=== PATIENT | female | born 1955 | race Caucasian/White ===

== ENCOUNTER 2016-10-21 11:40 | Emergency (ER) | payer MEDICAID ==
[2016-10-21 11:47] VITALS: BP 123/85; PULSE 60; RESP 18; TEMP 97.7; O2SAT 96
== END 2016-10-21 12:10 | disposition left against medical advice (07) ==
DX: Z53.21 Procedure and treatment not carried out due to patient leaving prior to being seen by health care provider (principal)

== ENCOUNTER 2017-07-07 09:05 | Emergency (ER) | payer MEDICAID ==
[2017-07-07 09:10] VITALS: BP 141/89; PULSE 84; RESP 16; TEMP 97.7; O2SAT 98
--- NOTE | 2017-07-07 09:21 | EDPHY ---
H & P Time Seen by Provider: 07/07/17 09:11 HPI/ROS: CHIEF COMPLAINT: Left pinky finger laceration HISTORY OF PRESENT ILLNESS: 61-year-old female right-hand dominant with up-to- date tetanus sustained accidental laceration to her left 5th digit dorsal aspect at the DIP joint . Occurred last evening but continues to the have slow bleed. No paresthesia. No sensory or motor deficit. No extensor deficits. PHYSICAL EXAM (Prior to examination, patient consented to physical exam, hands were washed and my usual and customary physical exam procedures followed) 1) GENERAL: Well-developed, well-nourished, alert and oriented. Appears to be in no acute distress. 2) HEAD: Normocephalic 3) HEENT: sclera anicteric 4) LUNGS: Breathing comfortably. 5) SKIN: left 5th digit at the D IP joint dorsal aspect 1 cm well-demarcated laceration with slow bleed. 6) MUSCULOSKELETAL: extensor function at the MCP PIP D IP independently tested remains intact no deficits 7) NEUROLOGIC: Two-point discrimination full sensation distally Smoking Status: Never smoked Constitutional: Initial Vital Signs Temperature (C) 36.5 C 07/07/17 09:08 Heart Rate 84 07/07/17 09:08 Respiratory Rate 16 07/07/17 09:08 Blood Pressure 141/89 H 07/07/17 09:08 O2 Sat (%) 98 07/07/17 09:08 O2 Delivery Mode Room Air Allergies/Adverse Reactions: No Known Allergies Allergy (Verified 10/21/16 11:45) Home Medications: Medication Instructions Recorded NK [No Known Home Meds] 12/29/14 MDM/Departure - [facility] [place] Procedures: Procedure: Laceration repair. I explained the indications, risks and benefits for both laceration repair and anesthetic administration. Verbal consent was obtained from the patient . The laceration on the left 5th digit was anesthetized using 0.5% bupivicaine without epinephrine . After anesthetic administered the patient was observed for a period of time and had no apparent adverse effects. The wound was cleaned , prepped, draped in normal sterile fashion and explored to its base. No foreign body seen, no foreign bodies palpated. There were no deep structures involved. No tendon injury was identified. The wound was repaired with 2 simple interrupted 5 O Prolene sutures. The wound repair was simple. The procedure was performed by myself. Patient has been informed that scarring will occur, although efforts have been made to minimize this. ED Course/Re-evaluation: Care of patient under supervision of secondary supervising physician Dr Clemons . - Depart Disposition: Home, Routine, Self-Care Clinical Impression: Laceration of little finger Qualifiers: Encounter type: initial encounter Damage to nail status: without damage Foreign body presence: without foreign body Laterality: left Qualified Code(s): S61.217A - Laceration without foreign body of left little finger without damage to nail, initial encounter Condition: Good Instructions: Laceration (ED), Care For Your Stitches (ED) Additional Instructions: Return to the ER if you develop redness, swelling, discharge, warmth to the wound, red streaks going up your arm , or any other symptoms that concern you. Referrals: Return, to the ER in 10 days for suture removal [Other] - As per Instructions
[2017-07-07] MEDS ORDERED: TDAP ADULT 0.5 ML INJ (BOOSTRIX) IM ONE (09:36)
== END 2017-07-07 09:43 | disposition home or self-care (01) ==
PROC: 3E0234Z Introduction of Serum, Toxoid and Vaccine into Muscle, Percutaneous Approach (ICD-10-PCS; principal; 2017-07-07)
PROC: 0HQGXZZ Repair Left Hand Skin, External Approach (ICD-10-PCS; principal; 2017-07-07)
DX: S61.217A Laceration without foreign body of left little finger without damage to nail, initial encounter (principal); Z23 Encounter for immunization; W26.9XXA Contact with unspecified sharp object(s), initial encounter; Y99.8 Other external cause status

== ENCOUNTER → 2017-09-12 | Outpatient (CLI) | payer MEDICAID | LOC: FIMAGING 15:50 | PROVIDERS: ATTEND Physician Assistant | DX: Z12.31 Encounter for screening mammogram for malignant neoplasm of breast (principal); Z80.3 Family history of malignant neoplasm of breast | CPT/HCPCS: G0202 ==

== ENCOUNTER 2017-12-20 13:59 | Emergency (ER) | payer MEDICAID ==
[2017-12-20] MEDS ORDERED: LET GEL TOPICAL 1 EA SYR TP ONE ×2 (14:22→14:23)
--- NOTE | 2017-12-20 14:23 | EDPHY ---
HPI/HX/ROS/PE/MDM Narrative: CHIEF COMPLAINT: "My dog bit me" HPI: The patient is a 62 y/o female complaining of multiple bites to both hands from her dog this afternoon. She says her dog is old and doesn't hear well and when she reached down to grab something he was eating he responded by biting her hands. She denies other injuries. No weakness or numbness in fingers. Her dog is fully vaccinated. No anticoagulants. REVIEW OF SYSTEMS: Aside from elements discussed in the HPI, a comprehensive 10-point review of systems was reviewed and is negative. PMH: Tetanus up-to-date. SOCIAL HISTORY: Lives in [place]. PCP: Albertina Barr PHYSICAL EXAM: General:Patient is alert, in no acute distress. ENT:Eyes are normal to inspection. ENT inspection normal. Neck: Normal inspection. Full range of motion. Respiratory:No respiratory distress. Cardiovascular: Normal cap refill. Skin: Normal color. No rash. Warm and dry. Extremities: Left hand: small puncture on left dorsal middle finger distal to PIPJ, small puncture left index finger just distal to PIPJ Right hand: 1.5cm diameter skin tear to dorsal aspect. Other extremities are normal in appearance. Full range of motion in all fingers. Neuro: Oriented x3. Normal motor function. Normal sensory function. ED Course: This is a 62 y/o female who presents with isolated dog bites to her hands suffered this afternoon. She has a small puncture wound on the left dorsal middle finger distal to PIPJ, a small puncture wound to the left index finger just distal to PIPJ, and a 1.5cm diameter skin tear to dorsal aspect of right hand. She has a normal neurovascular exam. Plan for topical lidocaine, left hand x-ray to rule out foreign body, and wound care. Left hand x-ray: nothing acute, possible bone chips do not correlate with puncture wounds. Discussed repair options for skin tear with the patient. She has opted for Steristrips. She will be discharged with script for Augmentin for infection prophylaxis and standard wound care and follow up instructions. Return precautions discussed. She is comfortable with this plan. - Data Points Imaging Results: Imaging Impressions Hand X-Ray 12/20/17 14:27 Impression: 1. Two indeterminate aged bone chips involving the third digit. Please see above. 2. Nothing acute in the second digit. Imaging: I viewed and interpreted images myself Medications Given: Discontinued Medications Ibuprofen (Motrin) 600 mg PO EDNOW ONE Stop: 12/20/17 14:29 Last Admin: 12/20/17 14:29 Dose: 600 mg Tetracaine/Epinephrine/Lidocaine (Let Gel Topical) 1 ea TP EDNOW ONE Stop: 12/20/17 14:24 Last Admin: 12/20/17 14:25 Dose: 1 ea General Time Seen by Provider: 12/20/17 14:14 Initial Vital Signs: Initial Vital Signs Temperature (C) 36.8 C 12/20/17 14:08 Heart Rate 81 12/20/17 14:08 Respiratory Rate 16 12/20/17 14:08 Blood Pressure 126/88 H 12/20/17 14:08 O2 Sat (%) 96 12/20/17 14:08 O2 Delivery Mode Room Air Allergies/Adverse Reactions: No Known Allergies Allergy (Verified 10/21/16 11:45) Home Medications: Medication Instructions Recorded Amoxicillin/Clavulanate Pot 875 mg PO BID #10 tab 12/20/17 [Augmentin 875Mg] Departure - Departure Disposition: Home, Routine, Self-Care Clinical Impression: Dog bite of finger Qualifiers: Encounter type: initial encounter Qualified Code(s): S61.259A - Open bite of unspecified finger without damage to nail, initial encounter Condition: Good Instructions: Animal Bite (ED), Puncture Wound (ED), Skin Tear (ED), Steristrips (ED) Additional Instructions: 1. Keep wounds clean and dry. Apply thin layer of bacitracin a few times daily for the next few days. 2. Take Augmentin as prescribed for infection prophylaxis. 3. Follow up with your primary care provider for unimproved symptoms over the next few days. 4. Return to the ED for severe pain, weakness or numbness in your fingers, dramatic increase in redness or swelling, or if you develop pus or fever. Referrals: Albertina Barr PA [Primary Care Provider] - As per Instructions Prescriptions: Amoxicillin/Clavulanate Pot [Augmentin 875Mg] 875 mg PO BID #10 tab Report Scribed for: Elvis Garcia Report Scribed by: Kerri Ndiaye Date of Report: 12/20/17 Time of Report: 14:23 Physician Review and Approval Statement: Portions of this note were transcribed by an ED scribe. I personally performed the history, physical exam, and medical decision making; and confirm the accuracy of the information in the transcribed note.
[2017-12-20] MEDS ORDERED: IBUPROFEN 600 MG TAB PO ONE (14:28)
[2017-12-20 15:31] VITALS: BP 125/78; PULSE 78; RESP 18; TEMP 98.6; O2SAT 95
== END 2017-12-20 15:31 | disposition home or self-care (01) ==
DX: S61.251A Open bite of left index finger without damage to nail, initial encounter (principal); S61.253A Open bite of left middle finger without damage to nail, initial encounter; W54.0XXA Bitten by dog, initial encounter

== ENCOUNTER → 2018-11-19 | Outpatient (CLI) | payer OTHER | LOC: FIMAGING 14:07 | PROVIDERS: ATTEND Family Medicine | DX: N64.4 Mastodynia (principal) ==